=== PATIENT | female | born 1985 | race Caucasian/White ===

== ENCOUNTER 2016-12-28 20:06 | Emergency (ER) | payer MEDICAID, OTHER ==
[~2016-12-28] VITALS: Ht 165.1 cm; Wt 131.9 kg
[2016-12-28] MEDS ORDERED: BACITRACIN ZINC OINT 500U/GM, 0.9 GM ONE (21:36)
[2016-12-28 22:00] VITALS: BP 130/86
[2016-12-28] MEDS ORDERED: DIPH,PERTUSS(ACELL),TET VAC/PF 0.5 ML IM-VACC ONE (22:30)
== END 2016-12-28 22:02 | disposition home or self-care (01) ==
LOC: ED 21:06
DX: O26.892 Other specified pregnancy related conditions, second trimester (principal); Z3A.17 17 weeks gestation of pregnancy; S50.811A Abrasion of right forearm, initial encounter; Y04.8XXA Assault by other bodily force, initial encounter; Y93.89 Activity, other specified; Y92.89 Other specified places as the place of occurrence of the external cause; Y99.9 Unspecified external cause status
CPT/HCPCS: 76805; 99284

== ENCOUNTER 2017-02-10 23:06 | Outpatient (CLI) | payer MEDICAID ==
[~2017-02-10] VITALS: Ht 165.1 cm; Wt 134.5 kg
[2017-02-10 23:20] VITALS: BP 120/77
== END 2017-02-11 00:45 | disposition home or self-care (01) ==
LOC: LDOP 23:06
PROVIDERS: ATTEND Obstetrics & Gynecology
DX: O26.892 Other specified pregnancy related conditions, second trimester (principal); O99.212 Obesity complicating pregnancy, second trimester; M54.5 Low back pain; W19.XXXA Unspecified fall, initial encounter; Z3A.25 25 weeks gestation of pregnancy
CPT/HCPCS: 59025; 99211; G0463

== ENCOUNTER 2017-04-24 08:34 | Inpatient (IN) | payer MEDICAID ==
[~2017-04-24] VITALS: Ht 167.6 cm; Wt 136.4 kg
[2017-04-24] MEDS ORDERED: LACTATED RINGERS 1,000 ML IVBOLUS ONE (09:30)
[2017-04-24 10:00] VITALS: BP 117/69
[2017-04-24] MEDS: LACTATED RINGERS 1,000 ML IV SCH ×3 (10:42→21:00)
[2017-04-24 12:35] LABS: ASPARTATE AMINO TRANSFERASE 17 U/L (15-37); BLOOD UREA NITROGEN 11 mg/dL (7-18)
[2017-04-25] MEDS: NITROFURANTOIN (MACROBID) 100 MG CAPSULE PO SCH ×3 (04:25→21:56)
[2017-04-25] MEDS ORDERED: NITROFURANTOIN (MACROBID) 100 MG CAPSULE ONE (04:27)
[2017-04-25] MEDS: LACTATED RINGERS 1,000 ML IV SCH ×4 (05:00→21:22)
[2017-04-25] MEDS ORDERED: OXYTOCIN 30U/ 0.9% NaCL 500ML 500 ML IV SCH (07:55)
[2017-04-25] MEDS ORDERED: LACTATED RINGERS 1,000 ML IV SCH ×2 (07:55→11:22)
[2017-04-25] MEDS ORDERED: METOCLOPRAMIDE 5 MG/ML, 2ML IV ONE (08:00)
[2017-04-25] MEDS ORDERED: LACTATED RINGERS 1,000 ML IVBOLUS ONE (08:00)
[2017-04-25] MEDS ORDERED: SODIUM CITRATE/CITRIC ACID 30 ML UDC PO ONE (08:00)
[2017-04-25] MEDS ORDERED: OXYTOCIN 30U/ 0.9% NaCL 500ML 500 ML ONE (08:20)
[2017-04-25] MEDS ORDERED: SODIUM CITRATE/CITRIC ACID 30 ML UDC ONE (08:20)
[2017-04-25] MEDS ORDERED: METOCLOPRAMIDE 5 MG/ML, 2ML ONE (08:20)
[2017-04-25] MEDS ORDERED: NEWBORN KIT ONE (08:51)
[2017-04-25] MEDS ORDERED: FENTANYL PF 100 MCG/2ML ONE ×2 (09:14→10:03)
[2017-04-25] MEDS ORDERED: HYDROmorphone 2 MG/ML, 1ML ONE (09:15)
[2017-04-25] MEDS ORDERED: CEFAZOLIN 1,000 MG ONE (10:03)
[2017-04-25] MEDS ORDERED: ONDANSETRON 2MG/ML, 2ML ONE (10:03)
[2017-04-25] MEDS: OXYTOCIN 30U/ 0.9% NaCL 500ML 500 ML IV SCH ×2 (11:22→21:22)
[2017-04-25] MEDS ORDERED: morphine SULFATE 10 MG/ML, 1ML IVPush PRN ×2 (11:30)
[2017-04-25] MEDS ORDERED: OXYcodone/APAP 5/325MG TABLET PO PRN (11:30)
[2017-04-25] MEDS ORDERED: ACETAMINOPHEN 325 MG TABLET PO PRN (11:30)
[2017-04-25] MEDS ORDERED: ONDANSETRON 2MG/ML, 2ML IV PRN (11:30)
[2017-04-25] MEDS ORDERED: MISOPROSTOL 200 MCG TABLET PR PRN (11:30)
[2017-04-25 13:35] VITALS: BP 117/69
[2017-04-25] MEDS: KETOROLAC 30 MG/1 ML IV SCH ×2 (15:05→21:18)
[2017-04-25 17:38] VITALS: BP 125/66
[2017-04-25 19:05] VITALS: BP 124/73
[2017-04-25] MEDS: DOCUSATE 100 MG CAPSULE PO PRN (21:18)
[2017-04-26 00:40] VITALS: BP 124/72
[2017-04-26] MEDS: KETOROLAC 30 MG/1 ML IV SCH ×4 (03:09→22:32)
[2017-04-26 03:30] VITALS: BP 119/78
[2017-04-26 07:20] VITALS: BP 118/72
[2017-04-26] MEDS: LACTATED RINGERS 1,000 ML IV SCH ×2 (07:22→17:22)
[2017-04-26] MEDS: OXYTOCIN 30U/ 0.9% NaCL 500ML 500 ML IV SCH ×2 (07:22→17:22)
[2017-04-26] MEDS: NITROFURANTOIN (MACROBID) 100 MG CAPSULE PO SCH ×2 (09:20→22:32)
[2017-04-26] MEDS: PRENATAL VIT/IRON/FA 1 EACH TABLET PO SCH (09:20)
[2017-04-26] MEDS: OXYcodone/APAP 5/325MG TABLET PO PRN ×2 (09:20→22:44)
[2017-04-26] MEDS: DOCUSATE 100 MG CAPSULE PO PRN ×2 (09:21→22:32)
[2017-04-26 20:15] VITALS: BP 126/83
[2017-04-26] MEDS ORDERED: OXYC-302 PO (23:27)
[2017-04-26] MEDS ORDERED: IBUP-1222 PO (23:28)
[2017-04-27] MEDS: KETOROLAC 30 MG/1 ML IV SCH (03:00)
[2017-04-27] MEDS: OXYTOCIN 30U/ 0.9% NaCL 500ML 500 ML IV SCH ×3 (03:22→23:06)
[2017-04-27] MEDS: LACTATED RINGERS 1,000 ML IV SCH ×3 (03:22→23:06)
[2017-04-27] MEDS: DOCUSATE 100 MG CAPSULE PO PRN (07:35)
[2017-04-27] MEDS: OXYcodone/APAP 5/325MG TABLET PO PRN ×2 (07:35→12:10)
[2017-04-27] MEDS: PRENATAL VIT/IRON/FA 1 EACH TABLET PO SCH (07:35)
[2017-04-27 07:38] VITALS: BP 134/83
[2017-04-27] MEDS: NITROFURANTOIN (MACROBID) 100 MG CAPSULE PO SCH ×2 (08:41→21:07)
[2017-04-27] MEDS ORDERED: IBUPROFEN 600 MG TABLET PO PRN (09:00)
[2017-04-27] MEDS: IBUPROFEN 600 MG TABLET PO PRN ×2 (12:10→17:52)
[2017-04-27 20:04] VITALS: BP 128/74
[2017-04-28 02:38] VITALS: BP 130/84
[2017-04-28] MEDS: OXYcodone/APAP 5/325MG TABLET PO PRN ×3 (04:11→21:01)
[2017-04-28] MEDS: IBUPROFEN 600 MG TABLET PO PRN ×3 (04:11→21:01)
[2017-04-28 08:20] VITALS: BP 122/81
[2017-04-28] MEDS: DOCUSATE 100 MG CAPSULE PO PRN (08:57)
[2017-04-28] MEDS: PRENATAL VIT/IRON/FA 1 EACH TABLET PO SCH (08:57)
[2017-04-28] MEDS: NITROFURANTOIN (MACROBID) 100 MG CAPSULE PO SCH ×2 (09:02→21:01)
[2017-04-28] MEDS: OXYTOCIN 30U/ 0.9% NaCL 500ML 500 ML IV SCH ×2 (09:22→19:22)
[2017-04-28] MEDS: LACTATED RINGERS 1,000 ML IV SCH ×2 (09:22→19:22)
[2017-04-28] MEDS ORDERED: DIPH,PERTUSS(ACELL),TET VAC/PF NC IM-VACC ONE ×2 (19:24→19:30)
[2017-04-28 21:00] VITALS: BP 130/77
[2017-04-29] MEDS: OXYcodone/APAP 5/325MG TABLET PO PRN ×2 (07:18→14:33)
[2017-04-29] MEDS: PRENATAL VIT/IRON/FA 1 EACH TABLET PO SCH (07:18)
[2017-04-29] MEDS: DOCUSATE 100 MG CAPSULE PO PRN (07:18)
[2017-04-29] MEDS: IBUPROFEN 600 MG TABLET PO PRN ×2 (07:18→14:33)
[2017-04-29 08:25] VITALS: BP 116/69
[2017-04-29] MEDS: NITROFURANTOIN (MACROBID) 100 MG CAPSULE PO SCH (09:55)
== END 2017-04-29 16:09 | disposition home or self-care (01) | DRG 765 ==
LOC: LDOP 08:34 → OBSVTOIN 09:26 → LDIP 09:26 → 2NW 04-25 13:23 → UNDODISIN 04-29 15:31
PROVIDERS: ADMIT Obstetrics & Gynecology; ATTEND Obstetrics & Gynecology
PROC: 10D00Z1 Extraction of Products of Conception, Low, Open Approach (ICD-10-PCS; principal; 2017-04-25)
DX: O34.211 Maternal care for low transverse scar from previous cesarean delivery (principal); O60.14X0 Preterm labor third trimester with preterm delivery third trimester, not applicable or unspecified; Z68.42 Body mass index [BMI] 45.0-49.9, adult; O24.420 Gestational diabetes mellitus in childbirth, diet controlled; O32.1XX0 Maternal care for breech presentation, not applicable or unspecified; E66.01 Morbid (severe) obesity due to excess calories; O99.214 Obesity complicating childbirth; O36.63X0 Maternal care for excessive fetal growth, third trimester, not applicable or unspecified; O40.3XX0 Polyhydramnios, third trimester, not applicable or unspecified; Z37.0 Single live birth; Z3A.35 35 weeks gestation of pregnancy; Z83.3 Family history of diabetes mellitus; Z82.49 Family history of ischemic heart disease and other diseases of the circulatory system; Z23 Encounter for immunization
CPT/HCPCS: 36415; 76805; 80053; 81001; 82962; 85025; 85384; 86850; 86900; 90715; J0690; J1170; J1885; J2405; J3010; J2590; J2765; J7120

== ENCOUNTER 2019-05-17 15:19 | Emergency (ER) | payer MEDICAID ==
[~2019-05-17] VITALS: Ht 165.1 cm; Wt 122.7 kg
[2019-05-17 22:20] VITALS: BP 109/56
== END 2019-05-17 22:26 | disposition home or self-care (01) ==
LOC: ED 22:00
DX: S09.8XXA Other specified injuries of head, initial encounter (principal); R10.31 Right lower quadrant pain; R10.32 Left lower quadrant pain; R50.9 Fever, unspecified; R42 Dizziness and giddiness; Z98.890 Other specified postprocedural states; X58.XXXA Exposure to other specified factors, initial encounter; Y93.89 Activity, other specified; Y92.89 Other specified places as the place of occurrence of the external cause; Y99.8 Other external cause status
CPT/HCPCS: 36415; 70450; 74177; 76830; 80053; 81001; 81025; 83605; 84145; 85025; 87040; 93005; 96361; 96374; 96375; 99284; J2270; J2405; J7030; Q9967